=== PATIENT | female | born 1985 | race Caucasian/White ===

== ENCOUNTER 2025-02-23 16:07 | Emergency (ER) | payer BC, SELFPAY ==
--- NOTE | ~2025-02-23 | CT_ITS ---
CLINICAL HISTORY: mid R lower ABD pain, TTP x 4days CT abdomen and pelvis with IV contrast. COMPARISON: XR abdomen dated 02/23/25 at 17:01 EDT FINDINGS: Small hiatal hernia. No focal hepatic lesion. Normal gallbladder. Normal spleen. Splenic granulomas present. Normal pancreas. Normal adrenal glands. Symmetric renal enhancement. No hydronephrosis. Appendix is normal in caliber measuring up to 4 mm. No periappendiceal or pericecal inflammatory changes. Zhzs-mt-qmoybybi colonic stool burden most pronounced within the cecum and ascending colon. No bowel obstruction. Multiple normal-sized mesenteric lymph nodes most pronounced along the right lower quadrant. Normal abdominal aorta. Urinary bladder is unremarkable given degree of distention. No adnexal mass. Small fat containing umbilical hernia. Mild multilevel spondylosis. No acute fracture identified. IMPRESSION: 1. Multiple normal-sized mesenteric lymph nodes most pronounced within the right lower quadrant. Nonspecific finding can be associated with an underlying infectious or inflammatory process. 2. No evidence of appendicitis. 3. Uuzp-ix-uhszqmji colonic stool burden most pronounced within the cecum and ascending colon. No bowel obstruction. 4. Small hiatal hernia. This document has been electronically signed by: Chase Boone MD on 02/23/2025 20:19:11
--- NOTE | ~2025-02-23 | XR_ITS ---
CLINICAL HISTORY: pain Single view of the abdomen. COMPARISON: None FINDINGS: Normal bowel distention. Pelvic phleboliths present. No pneumoperitoneum identified. Xchb-vq-purspvyn colonic stool burden. No fracture identified. IMPRESSION: 1. Nonspecific nonobstructive bowel gas pattern. This document has been electronically signed by: Chase Boone MD on 02/23/2025 17:21:13
[2025-02-23 16:30] VITALS: BP 133/85; PULSE 100; RESP 18; TEMP 37.1; O2SAT 98; BMI 41.5
--- NOTE | 2025-02-23 16:38 | ED.GENADULT ---
HPI - General Adult General Chief complaint: Abdominal Pain Stated complaint: Abdominal Pain Time Seen by Provider: 02/23/25 18:33 Source: patient Mode of arrival: ambulatory Limitations: no limitations History of Present Illness ED Provider: david spivey NP HPI narrative: Patient is a 31-year-old female with past medical history of prediabetes, elevated blood pressure reading without diagnosis of hypertension who presents emergency department for evaluation. She reports over the past 5 days has been experiencing lower abdominal pain primarily mid/right lower quadrant described as a an intermittent stabbing pain with a constant dull ache. Pain worse today than previously. Exacerbates with eating. States it symptom onset was a few hours after eating a turkey club sandwich into chicken wings on Saturday. She states that she was started onset bound in December of 2024 for weight management free DNA diabetes, she initially experienced quite a bit of constipation but states that this has significantly improved recently, she does not recall the exact date of her last bowel movement but feels it was within the past few days. Denies fevers, chills, chest pain, nausea, vomiting, hematemesis, diarrhea, constipation, hematochezia, melena, dysuria, urinary frequency, urinary urgency, urinary hesitancy, hematuria. denies pelvic pain or abnormal vaginal discharge . Denies concern for sexually transmitted infection. Denies concern for . Related Data Allergies Allergy/AdvReac Type Severity Reaction Status Date / Time amoxicillin Allergy Unknown Verified 02/23/25 16:32 Review of Systems Review of Systems: Yes all other systems are reviewed and are negative PMFSH Past Medical History Attestation statement: The following information was validated with the patient. Source: old records reviewed Social History Social History Advance Directives: No Advance Directives Information Provided: No Physical Exam ED Vital Signs: Vital Signs - 24 hr 02/23/25 16:30 Temperature 98.7 F Pulse Rate 100 Respiratory Rate 18 Blood Pressure 133/85 Pulse Oximetry 98 Oxygen Delivery Method Room Air BMI result Body Mass Index 41.5 Appearance: Alert.?Oriented to person, place and time. No acute distress.?Normal affect.?? Neck: Normal inspection.? Neck supple.?? CVS: Heart sounds normal. Normal heart rate and rhythm.? Pulses normal.?? Respiratory: No respiratory distress.? Lung sounds clear to auscultation bilaterally?? Abdomen: Soft with right lower quadrant and mid lower abdominal tenderness upon palpation. Negative psoas sign. Negative Rovsing sign. Negative Parker sign. No CVAT. Normoactive bowel sounds. No pulsatile mass.?? Skin: Skin warm and dry.? Normal skin color.? Extremities: No lower extremity edema.? Neuro: Moves all extremities spontaneously. Sensation intact bilaterally. Ambulates with normal steady gait. Course Course Course Narrative: This is a rapid medical exam performed by Sonali Alvarado PA-C. The patient is a 39-year-old female with a history of morbid obesity, who was on Ozempic, who presents with the abdominal pain x4 days. Pain generalized described as stabbing sensation, worse after eating. Denies nausea vomiting diarrhea. Her bowel movements have been irregular, last bowel movement a few days ago. On exam her abdomen is soft, nondistended nontender no guarding. Plan to screen basic labs, LFTs and lipase, and a KUB. Patient was stable and can return to the waiting room pending her full medical assessment. Medications Administered Discontinued Medications Generic Name Dose Route Start Last Admin Trade Name Freq PRN Reason Stop Dose Admin Sodium Chloride 1,000 mls @ 999 mls/hr 02/23/25 19:15 02/23/25 19:49 Ns IV 02/23/25 20:15 999 mls/hr .Q1H1M [place] Administration Iohexol 85 ml 02/23/25 19:45 02/23/25 19:45 Iohexol 350 Mg/Ml 100 Ml Infus..Btl IV 02/23/25 19:46 85 ml ONCE ONE Administration Medical Decision Making Medical Decision Making MDM Narrative: Patient is a 31-year-old female with past medical history of prediabetes, recently elevated blood pressure readings without diagnosis of hypertension who presents emergency department for evaluation of abdominal pain as per HPI, examination does have nyyz-dc-gseimsen tenderness in the mid lower ABD/right lower quadrant. No guarding or percussive tenderness. overall without signs of systemic toxicity found to be afebrile without tachycardia, no hypotension. On review of serum labs obtained prior to my assumption of care CBC is without leukocytosis, no anemia, no thrombocytopenia. No significant electrolyte derangement. No PEDRO LUIS. LFTs overall unremarkable, minimally elevated ALT at 47, normal lipase. HCG is negative. Urinalysis is without microscopic hematuria, has trace leukocyte esterase, 11-20 urine WBC, > 20 squamous epithelial cells and 4+ urine bacteria; she is without acute symptoms, given presence of squamous epithelial cells, I am more inclined to think that this is urogenital contamination versus true urinary tract infection, therefore would defer a course of antibiotics at this time. KUB without obstructive bowel gas pattern, there is kddm-sq-sryeijqc stool burden. Obtaining CT of the abdomen and pelvis for further evaluation, appendicitis, vaccine, obstruction, no reported history ovarian cyst, lower suspicion for ovarian torsion, No associated genitourinary symptoms to suggest UTI/pyelonephritis, renal colic, hydronephrosis. hCG is negative, unlikely ectopic , lower clinical suspicion for TOA/torsion. Differential Diagnosis Differential Diagnoses: The differential diagnosis associated with the presentation includes (See narrative above) Admission/Observation Consideration of admission/observation: Escalation of care including admission/observation considered (See narrative above ) Lab Data MDM Lab Attestation statement: I reviewed the patient's lab results. 02/23/25 16:46 02/23/25 16:46 Labs: Lab Results 02/23/25 Range/Units 16:46 WBC 9.5 (4.8-10.8) X10*3/uL RBC 4.69 (4.20-5.50) X10*6/uL Hgb 12.2 (12.0-16.0) g/dl Hct 38.6 (37.0-47.0) % MCV 82.3 (80.0-98.0) fL MCH 26.0 L (27.0-33.0) pg MCHC 31.6 (31.0-35.0) g/dl RDW 16.3 H (11.0-16.0) % Plt Count 262 (160-400) X10*3/uL MPV 11.5 (9.4-12.3) fL Immature Gran % (Auto) 0.5 H (0.0-0.4) % Neut % (Auto) 64.9 (45-73) % Lymph % (Auto) 24.9 (20-40) % [place] % (Auto) 6.9 (2-11) % Eos % (Auto) 2.0 (0-4) % Baso % (Auto) 0.8 (0-2) % Lymph # (Auto) 2.4 (1.2-4.9) X10*3/uL [place] # (Auto) 0.7 (0.1-1.2) X10*3/uL Eos # (Auto) 0.2 (0.0-0.4) X10*3/uL Baso # (Auto) 0.1 (0.0-0.2) X10*3/uL Abs Immat Gran (auto) 0.05 H (0.00-0.03) X10*3/uL Absolute Neuts (auto) 6.2 (2.0-8.3) x10*3/uL Absolute Nucleated RBC 0.000 (0.0-0.012) X10*3/uL Nucleated RBC % (auto) 0.0 (0.0-0.2) /100WBC Sodium 141 (135-145) mmol/L Potassium 4.3 (3.3-5.1) mmol/L Chloride 110 H (96-108) mmol/L Carbon Dioxide 25 (22-29) mmol/L Anion Gap 10 L (12-20) BUN 12 (9-16) mg/dL Creatinine 0.75 (0.5-1.4) mg/dL Estim Creat Clear Calc 155.0 Estimated GFR > 60 Random Glucose 98 (60-115) mg/dL Calcium 9.5 (8.4-10.2) mg/dL Magnesium 2.0 (1.6-2.6) mg/dL Total Bilirubin 0.3 (0.0-1.0) mg/dL Direct Bilirubin 0.2 (0.0-0.5) mg/dL AST 26 (5-31) U/L ALT 47 H (0-31) U/L Alkaline Phosphatase 68 (39-117) U/L Total Protein 7.3 (6.5-8.0) g/dL Albumin 4.0 (3.5-5.0) g/dL Lipase 37 (8-78) U/L Beta HCG, Quant < 2 mIU/mL Urine Color Yellow Urine Appearance Cloudy Urine pH 5.5 (5.0-9.0) Ur Specific [place] 1.020 (1.005-1.025) Urine Protein Negative (Neg-Trace) mg/dL Urine Glucose (UA) Negative (Negative) mg/dL Urine Ketones Negative (Negative) mg/dL Urine Blood Negative (Negative) Urine Nitrite Negative (Negative) Ur Leukocyte Esterase Trace H (Negative) Urine RBC 0-2 (0-2) /HPF Urine WBC 11-20 H (0-5) /HPF Ur Squamous Epith Cells >20 (0-2) /HPF Urine Bacteria 4+ (None Seen) Hyaline Casts 3-5 (0-2) /LPF Independent Interpretation I performed an independent interpretation of an: Plain X-Ray (See above) Radiology Impression Discussion of test interpretation with radiology: I have reviewed the radiologist's reading. Radiologist Impression: Single view of the abdomen. COMPARISON: None FINDINGS: Normal bowel distention. Pelvic phleboliths present. No pneumoperitoneum identified. Vmir-mt-tlndpona colonic stool burden. No fracture identified. IMPRESSION: 1. Nonspecific nonobstructive bowel gas pattern. IMPRESSION: 1. Multiple normal-sized mesenteric lymph nodes most pronounced within the right lower quadrant. Nonspecific finding can be associated with an underlying infectious or inflammatory process. 2. No evidence of appendicitis. 3. Vjry-tl-uppyuelg colonic stool burden most pronounced within the cecum and ascending colon. No bowel obstruction. 4. Small hiatal hernia. External Record Review External record reviewed: Outpatient record Chronic Conditions Patient?s care impacted by: Other (See narrative above) Discharge Plan Discharge Clinical Impression: Abdominal pain Patient Disposition: Home, Self-Care Instructions: Abdominal Pain (ED) Additional Instructions: As discussed blood work today was very reassuring. CT scan does not show evidence of appendicitis which is good to see. You do have some stool burden in the intestine as we talked about, you may take MiraLax daily available fruo-xgl-ocytbee, mix into 8 oz of water or juice to promote persistent bowel movements. Increase dietary fiber. CT scan also showed inflammation of some of the lymph nodes in the right lower portion of your abdomen, this can occur as an inflammatory process or due to an underlying infection. As we discussed, you may have a mild gastrointestinal illness,, potentially may experience nausea/vomiting/diarrhea upcoming. Follow-up accordingly with your primary care doctor over the next 3 days if you continue to have persistent symptoms. You may return to emergency department any new or worsening symptoms or concerns. Referrals: Gris Thakur MD [Primary Care Provider] - Print Language: Pashto
[2025-02-23 16:53] LABS: MANUAL DIFF FLAG NO
[2025-02-23 16:56] LABS: Basophils Absolute Auto 0.1 X10*3/uL (0.0-0.2); Basophils Percent Auto 0.8 % (0-2); Eosinophils Absolute Auto 0.2 X10*3/uL (0.0-0.4); Hematocrit 38.6 % (37.0-47.0); Hemoglobin 12.2 g/dl (12.0-16.0); Imm Gran Abs Auto 0.05 X10*3/uL (0.00-0.03); Imm Gran Pct Auto 0.5 % (0.0-0.4); Lymphocytes Absolute Auto 2.4 X10*3/uL (1.2-4.9); Lymphocytes Percent Auto 24.9 % (20-40); Mean Corpuscular HGB Conc 31.6 g/dl (31.0-35.0); Mean Corpuscular Volume 82.3 fL (80.0-98.0); Mean Platelet Volume 11.5 fL (9.4-12.3); Monocytes Absolute Auto 0.7 X10*3/uL (0.1-1.2); Monocytes Percent Auto 6.9 % (2-11); Neutrophils Absolute Auto 6.2 x10*3/uL (2.0-8.3); Neutrophils Percent Auto 64.9 % (45-73); Platelet Count 262 X10*3/uL (160-400); Red Blood Count 4.69 X10*6/uL (4.20-5.50); Red Cell Distribution Width 16.3 % (11.0-16.0); White Blood Count 9.5 X10*3/uL (4.8-10.8)
[2025-02-23 16:58] LABS: Appearance Urine Cloudy; Color Urine Yellow; Glucose Urine UA Negative (Negative); Leukocyte Esterase Urine Trace (Negative); Nitrite Urine Negative (Negative); PH 5.5 (5.0-9.0); UMIC TRIGGER UACC YES; Urine Blood Negative (Negative); Urine Ketones Negative (Negative); Urine Protein Negative (Neg-Trace)
[2025-02-23 17:10] LABS: Bacteria Urine 4+ (None Seen); RBC Urine 0-2 /HPF (0-2); Squamous Epithelial Cell Urine >20 /HPF (0-2); UACC Culture Trigger YES
[2025-02-23 17:16] LABS: Alanine Aminotransferase 47 U/L (0-31); Alkaline Phosphatase 68 U/L (39-117); Anion Gap 10 (12-20); Aspartate Amino Transferase 26 U/L (5-31); Bilirubin Direct 0.2 mg/dL (0.0-0.5); Bilirubin Total 0.3 mg/dL (0.0-1.0); Blood Urea Nitrogen 12 mg/dL (9-16); Calcium 9.5 mg/dL (8.4-10.2); Carbon Dioxide 25 mmol/L (22-29); Chloride 110 mmol/L (96-108); Estimated Glomerular Filt Rate > 60; Glucose Random 98 mg/dL (60-115); Lipase 37 U/L (8-78); Potassium 4.3 mmol/L (3.3-5.1); Sodium 141 mmol/L (135-145); Total Protein 7.3 g/dL (6.5-8.0)
[2025-02-23 17:24] LABS: HCG Quantitative < 2 mIU/mL
[2025-02-23] MEDS: iohexoL 350 MG/ML 100 ML INFUS..BTL 85 ML IV (19:45)
[2025-02-23] MEDS: 0.9 % Sodium Chloride 1,000 ML 999 ML IV (19:49)
[2025-02-23 20:50] VITALS: BP 134/67; PULSE 74; RESP 18; TEMP 36.9; O2SAT 100
[2025-02-23 21:19] VITALS: BP 134/67; PULSE 74; RESP 18; TEMP 36.9; O2SAT 100
== END 2025-02-23 21:19 | disposition home or self-care (01) ==
PROVIDERS: Physician Assistant Medical; Emergency Provider Emergency Medicine Emergency Medical Services; PCP Family Medicine
DX: R10.31 Right lower quadrant pain (principal); I10 Essential (primary) hypertension; R03.0 Elevated blood-pressure reading, without diagnosis of hypertension
CPT/HCPCS: 36415; 74018; 74177; 80053; 81001; 82248; 83690; 83735; 84702; 85025; 87086; 96360; 99283; 99284; Q9967

== ENCOUNTER → 2025-02-23 16:35 | Outpatient (BNV) | payer SELFPAY | PROVIDERS: PCP Family Medicine; Visit Provider Radiology Diagnostic Radiology | DX: R10.31 Right lower quadrant pain (principal) | CPT/HCPCS: 74018; 74177 ==